=== PATIENT | male | born 1985 | race Caucasian/White ===

== ENCOUNTER 2019-08-20 15:45 | Emergency (ER) | payer MEDICARE ==
[~2019-08-20] VITALS: Ht 175.3 cm; Wt 68.0 kg
[2019-08-20] MEDS ORDERED: ABILIFY10 MG ORAL (15:48)
[2019-08-20] MEDS ORDERED: VENLAFAXINE HCL25 MG ORAL (15:48)
[2019-08-20] MEDS ORDERED: TRAZODONE HCL150 MG ORAL (15:48)
--- NOTE | 2019-08-20 15:50 | NUR ---
ED Nurse Note: Pt brought intio ED by ED stating that he has had severe paranoia today. He states he felt that people in residence were all trying to hurt him, but now realizes that's not true. Pt has hx of major depression and bipolar. Pt is alert and orientedx4, ambulatory. Pt is anxious, keeps playing with hair, restless. Pt denies SI or HI. He is laying in bed.
[2019-08-20 15:53] VITALS: BP 144/71
[2019-08-20] MEDS ORDERED: DiphenhydrAMINE 50mg/ml Inj IM ONE (16:00)
[2019-08-20] MEDS ORDERED: DiphenhydrAMINE 50mg/ml Inj ONE (16:16)
[2019-08-20 16:26] LABS: BASOPHILS % (AUTO) 2.1 % (0.0-2.0); EOSINOPHILS % (AUTO) 1.6 % (0.0-3.0); HEMATOCRIT 46.1 % (42.0-52.0); HEMOGLOBIN 15.3 G/DL (14.2-18.0); LYMPHOCYTES % (AUTO) 29.7 % (20.0-45.0); MEAN CORPUSCULAR VOLUME 89 FL (80-99); MONOCYTES % (AUTO) 10.4 % (1.0-10.0); NEUTROPHILS % (AUTO) 56.2 % (45.0-75.0); PLATELET COUNT 270 K/UL (150-450); RED BLOOD COUNT 5.19 M/UL (4.70-6.10); RED CELL DISTRIBUTION WIDTH 14.3 % (11.6-14.8); WHITE BLOOD COUNT 7.7 K/UL (4.8-10.8)
[2019-08-20 16:30] LABS: APPEARANCE,URINE CLEAR; BILIRUBIN, URINE NEGATIVE (NEGATIVE); COLOR,URINE PALE YELLOW; GLUCOSE, URINE (UA) NEGATIVE (NEGATIVE); KETONES,URINE 2+ (NEGATIVE); LEUKOCYTE ESTERASE ,URINE 2+ (NEGATIVE); NITRITE,URINE NEGATIVE (NEGATIVE); PH,URINE 6 (4.5-8.0); PROTEIN,URINE NEGATIVE (NEGATIVE); UROBILINOGEN,URINE NORMAL MG/DL (0.0-1.0)
[2019-08-20 16:35] LABS: ANION GAP 20 mmol/L (5-15); BLOOD UREA NITROGEN 14 mg/dL (7-18); CALCIUM 9.8 MG/DL (8.5-10.1); CARBON DIOXIDE 21 MMOL/L (21-32); CHLORIDE 102 MMOL/L (98-107); POTASSIUM 3.8 MMOL/L (3.5-5.1); SODIUM 143 MMOL/L (136-145)
[2019-08-20 16:45] LABS: ALANINE AMINOTRANSFERASE 20 U/L (12-78); ALBUMIN 4.5 G/DL (3.4-5.0); ALBUMIN/GLOBULIN RATIO 1.1 (1.0-2.7); ALKALINE PHOSPHATASE 107 U/L (46-116); ASPARTATE AMINO TRANSFERASE 18 U/L (15-37); BILIRUBIN,TOTAL 1.3 MG/DL (0.2-1.0)
[2019-08-20 16:51] LABS: BILIRUBIN,DIRECT 0.2 MG/DL (0.0-0.3)
--- NOTE | 2019-08-20 17:08 | Emergency Room Report ---
History of Present Illness General Chief Complaint: Behavioral Complaint Source: Patient Present Illness HPI 34-year-old male with history of coming from boarding care reports that being on Prozac and Abilify and taking his medication every day here brought in by paramedics complaining of increased paranoia. Patient denies any suicidal or homicidal ideation. Patient appears to be under the influence of methamphetamine as he is very shaky. Patient reports that he might have used methamphetamine. Denies all other drug use, chest pain, headache and dizziness. Is in no distress. Allergies: Coded Allergies: GABAPENTIN (Verified Allergy, Unknown, 08/20/19) HALOPERIDOL (Verified Allergy, Unknown, 08/20/19) Patient History Past Medical History: see triage record Past Surgical History: unable to obtain Pertinent Family History: none Social History: Reports: drug use - Methamphetamine Immunizations: UTD Reviewed Nursing Documentation: PMH: Agreed; PSxH: Agreed Nursing Documentation-PMH Past Medical History: No History, Except For Hx Cardiac Problems: No - Agoraphobia Review of Systems All Other Systems: negative except mentioned in HPI Physical Exam Vital Signs Date Time Temp Pulse Resp B/P (MAP) Pulse Ox O2 Delivery O2 Flow Rate FiO2 08/20/19 15:40 98.4 86 19 142/73 (96) 98 Room Air Sp02 EP Interpretation: reviewed, normal General Appearance: no apparent distress, alert, GCS 15, non-toxic Head: normocephalic, atraumatic Eyes: bilateral eye normal inspection, bilateral eye PERRL ENT: normal ENT inspection, hearing grossly normal, EOM grossly intact Neck: full range of motion, supple/symm/no masses Respiratory: chest non-tender, lungs clear, normal breath sounds, no rhonchi, no wheezing, speaking full sentences Cardiovascular #1: regular rate, rhythm, no edema, no murmur Cardiovascular #2: 2+ radial (R), 2+ radial (L) Gastrointestinal: normal bowel sounds, non tender, soft, non-distended, no guarding, no rebound Rectal: deferred Musculoskeletal: back normal Neurologic: alert, oriented Psychiatric: judgement/insight normal, anxious Skin: no rash Lymphatic: no adenopathy Medical Decision Making PA Attestation All my diagnosis and treatment plans were reviewed ad discussed with my supervising physician Dr. Haile Diagnostic Impression: Primary Impression: Methamphetamine abuse Additional Impression: UTI (urinary tract infection) ER Course 34-year-old male with history of [facility] reports that being on Prozac and Abilify and taking his medication every day here brought in by paramedics complaining of increased paranoia. Patient denies any suicidal or homicidal ideation. Patient appears to be under the influence of methamphetamine as he is very shaky. Patient reports that he might have used methamphetamine. Denies all other drug use, chest pain, headache and dizziness. Is in no distress. Ddx considered but are not limited to: generalized anxiety disorder, panic attack, depression with psychotic feature, bipolar disorder, drug overdose Vital signs: are WNL, pt. is afebrile H&PE are most consistent with: Methamphetamine abuse, incidental finding of UTI ORDERS: Toxin, UA, CBC, CMP, Keflex ED INTERVENTIONS: NS bolus, Rocephin, Benadryl DISCHARGE: At this time pt. is stable for d/c to home. Will provide printed patient care instructions, and any necessary prescriptions. Care plan and follow up instructions have been discussed with the patient prior to discharge. Avoid using methamphetamine as it will induce more paranoia, take medication as directed, follow-up with primary care provider, if worsening symptoms return to emergency room. Patient feels much better after Benadryl was given, patient slept, IV fluids were administered, patient ate on discharge, and fully alert. Last Vital Signs Date Time Temp Pulse Resp B/P (MAP) Pulse Ox O2 Delivery O2 Flow Rate FiO2 08/20/19 15:53 98.4 21 144/71 97 Room Air 08/20/19 15:53 89 Disposition: HOME, SELF-CARE Condition: Stable Scripts Cephalexin* (KEFLEX*) 500 Mg Capsule 500 MG ORAL EVERY 6 HOURS for 7 Days, #28 CAP Prov: Jadon Queen 08/20/19 Patient Instructions: Self-Destructive Behavior, Stimulant Use Disorder- Methamphetamines, Urinary Tract Infection, [id number] Additional Instructions: Avoid using methamphetamine as it will induce paranoia, take your medication as directed, increase oral hydration, if worsening symptoms return to the emergency room Jadon Queen Aug 20, 2019 17:08
[2019-08-20] MEDS ORDERED: CEPHALEXIN500 MG ORAL (17:09)
[2019-08-20 18:00] VITALS: BP 134/70
[2019-08-20 20:20] VITALS: BP 126/72
--- NOTE | 2019-08-20 20:20 | NUR ---
ER DISCHARGE NOTE: Patient is cleared to be discharged per ERMD, pt is aox4, on room air, with stable vital signs. pt was given dc and prescription instructions, pt was able to verbalize understanding, pt id band and iv site removed without complications. pt is able to ambulate with steady gait. pt took all belongings. Addendum: 08/21/19 at 0122 by KIMBERLY ER DISCHARGE NOTE: Patient is cleared to be discharged per ERMD, pt is aox4, on room air, with stable vital signs. pt was given dc and prescription instructions, pt was able to verbalize understanding, pt id band and iv site removed without complications. pt is to be discharged back to facility and is accompanied by amulance personnel.
== END 2019-08-20 20:20 | disposition home or self-care (01) ==
LOC: EDBD 15:45 → EMR 17:10
DX: F15.10 Other stimulant abuse, uncomplicated (principal); N39.0 Urinary tract infection, site not specified; Z88.8 Allergy status to other drugs, medicaments and biological substances
CPT/HCPCS: 36415; 80053; 80307; 81003; 82248; 85025; 87086; 96360; 96372; 99284; G0480; J1200; J7030

== ENCOUNTER 2019-08-23 12:46 | Emergency (ER) | payer MEDICARE ==
[~2019-08-23] VITALS: Ht 177.8 cm; Wt 63.5 kg
[~2019-08-23 12:46] MED LIST: ABILIFY10 MG ORAL; CEPHALEXIN500 MG ORAL; TRAZODONE HCL150 MG ORAL; VENLAFAXINE HCL25 MG ORAL
--- NOTE | 2019-08-23 13:24 | NUR ---
ED Nurse Note: Pt belongings sent to locker #2.
[2019-08-23 13:30] VITALS: BP 118/72
--- NOTE | 2019-08-23 13:30 | NUR ---
ED Nurse Note: Pt walked into ED from longterm house w/ suicidal ideation. Pt states he wants to be placed in inpatient psych facility. Pt states he has a plan to overdose on heroin. Safety measure in place. Pts belongings placed in locker. RASHEEDA Steinberg is aware of SI and plan. Sitter lgo filled out. Pt i august piña.
[2019-08-23 14:12] LABS: BASOPHILS % (AUTO) 1.9 % (0.0-2.0); HEMATOCRIT 46.4 % (42.0-52.0); HEMOGLOBIN 16.1 G/DL (14.2-18.0); LYMPHOCYTES % (AUTO) 22.5 % (20.0-45.0); MEAN CORPUSCULAR VOLUME 88 FL (80-99); MONOCYTES % (AUTO) 7.6 % (1.0-10.0); PLATELET COUNT 253 K/UL (150-450); RED BLOOD COUNT 5.25 M/UL (4.70-6.10); RED CELL DISTRIBUTION WIDTH 12.6 % (11.6-14.8); WHITE BLOOD COUNT 6.9 K/UL (4.8-10.8)
--- NOTE | 2019-08-23 14:30 | NUR ---
ED Nurse Note: Pt lying in bed, awake and quiet. Safety measures in place.
[2019-08-23 14:33] LABS: ANION GAP 11 mmol/L (5-15); BLOOD UREA NITROGEN 14 mg/dL (7-18); CALCIUM 9.6 MG/DL (8.5-10.1); CARBON DIOXIDE 27 MMOL/L (21-32); CHLORIDE 105 MMOL/L (98-107); CREATININE 0.8 MG/DL (0.55-1.30); POTASSIUM 4.1 MMOL/L (3.5-5.1); SODIUM 143 MMOL/L (136-145)
[2019-08-23 14:41] LABS: ALANINE AMINOTRANSFERASE 18 U/L (12-78); ALBUMIN 4.4 G/DL (3.4-5.0); ALKALINE PHOSPHATASE 103 U/L (46-116); ASPARTATE AMINO TRANSFERASE 19 U/L (15-37); BILIRUBIN,TOTAL 0.5 MG/DL (0.2-1.0)
--- NOTE | 2019-08-23 15:10 | Emergency Room Report ---
History of Present Illness General Chief Complaint: Behavioral Complaint Source: Patient (Isabel Steinberg) Present Illness HPI 34-year-old male presents to the emergency department complaining of suicidal ideations and significant exacerbation of his depression and anxiety symptoms. Patient reports he has a history of degenerative depressive disorder, anxiety, [place] phobia and ADHD. Patient denies alcohol use he reports he has history of drug use and states he last used some meth 4 days ago. Patient reports that he has a plan to overdose on heroin and describes how he feels that that would be the most painless way to . Patient reports previous psychiatric hospitalizations twice in the past and at [facility] and at a psychiatric hospital in [place]. He reports 1 PSA. He denies manic symptoms. Patient denies fevers, chills, shortness of breath or chest pain. He does report history of heart attack 9 years ago and states that he had CHF and was on Coreg for approximately 6 months before he was taken off of it. Patient denies any other significant past medical history. He reports having a poor support system as an outpatient. He is currently residing at [facility]. He left today because they did not give him his medications. Pt. reports that he takes 40 mg Prozac, 1 mg of Klonopin, 150 mg trazodone, plus or minus Benadryl, 15 mg Abilify. He denies pain at this time. He denies HI. (Isabel Steinberg) Allergies: Coded Allergies: GABAPENTIN (Verified Allergy, Unknown, 08/20/19) HALOPERIDOL (Verified Allergy, Unknown, 08/20/19) Patient History Past Medical History: see triage record Past Surgical History: none Pertinent Family History: none Reviewed Nursing Documentation: PMH: Agreed; PSxH: Agreed (Isabel Steinberg) Nursing Documentation-PMH Hx Cardiac Problems: No - Agoraphobia, adhd (Isabel Steinberg) Review of Systems All Other Systems: negative except mentioned in HPI (Isabel Steinberg) Physical Exam Vital Signs Date Time Temp Pulse Resp B/P (MAP) Pulse Ox O2 Delivery O2 Flow Rate FiO2 08/23/19 12:59 97.3 96 19 120/75 (90) 95 Room Air 08/23/19 13:30 97 Sp02 EP Interpretation: reviewed, normal General Appearance: no apparent distress, alert, GCS 15, non-toxic, other - Mildly disheveled Head: normocephalic, atraumatic Eyes: bilateral eye normal inspection, bilateral eye PERRL ENT: hearing grossly normal, normal voice Neck: full range of motion Respiratory: chest non-tender, lungs clear, normal breath sounds, speaking full sentences Cardiovascular #1: regular rate, rhythm Gastrointestinal: normal bowel sounds, non tender, soft Rectal: deferred Genitourinary: normal inspection Musculoskeletal: back normal, normal range of motion, gait/station normal, non- tender Neurologic: alert, motor strength/tone normal, oriented x3, sensory intact, responsive, speech normal Psychiatric: judgement/insight normal, memory normal, depressed affect, other - Pt. is SI. he is restless but cooperative. Suicide Risk Assessment: Suicidal Ideation: Yes Had intent to initiate attempt: Yes Pt's plan for suicide attempt: Yes - OD on Heroin Has means to complete attempt: Yes Skin: normal color, normal inspection Lymphatic: no adenopathy (Isabel Steinberg) Medical Decision Making PA Attestation Dr. Roman is my supervising Physician whom patient management has been discussed with. (Isabel Steinberg) Diagnostic Impression: Primary Impression: Behavioral disorder Additional Impression: Methamphetamine abuse ER Course 34-year-old male presents to the emergency department complaining of suicidal ideations and significant exacerbation of his depression and anxiety symptoms. Patient reports he has a history of degenerative depressive disorder, anxiety, [place] phobia and ADHD. Patient denies alcohol use he reports he has history of drug use and states he last used some meth 4 days ago. Patient reports that he has a plan to overdose on heroin and describes how he feels that that would be the most painless way to . Patient reports previous psychiatric hospitalizations twice in the past and at [facility] and at a psychiatric hospital in [place]. He reports 1 PSA. He denies manic symptoms. Patient denies fevers, chills, shortness of breath or chest pain. He does report history of heart attack 9 years ago and states that he had CHF and was on Coreg for approximately 6 months before he was taken off of it. Patient denies any other significant past medical history. He reports having a poor support system as an outpatient. He is currently residing at [facility]. He left today because they did not give him his medications. Pt. reports that he takes 40 mg Prozac, 1 mg of Klonopin, 150 mg trazodone, plus or minus Benadryl, 15 mg Abilify. He denies pain at this time. He denies HI. Pt is very cooperative however restless affect. Ddx considered but are not limited to OD, SI/HI, psychosis, UTI, intoxication Vital signs: are WNL, pt. is afebrile H&PE are most consistent with behavioral/mental health issue ORDERS: -CBC, CMP: WNL -UA: negative for infection see results attached. -UDS: Positive for Amphetamine -Salicylates and Acetaminophen - no acute intoxication. ED INTERVENTIONS: - None required at this time. DISPOSITION: Patient is medically cleared and is stable for psychiatric placement. Labs Test 08/23/19 13:39 08/23/19 14:00 White Blood Count 6.9 K/UL (4.8-10.8) Red Blood Count 5.25 M/UL (4.70-6.10) Hemoglobin 16.1 G/DL (14.2-18.0) Hematocrit 46.4 % (42.0-52.0) Mean Corpuscular Volume 88 FL (80-99) Mean Corpuscular Hemoglobin 30.7 PG (27.0-31.0) Mean Corpuscular Hemoglobin Concent 34.7 G/DL (32.0-36.0) Red Cell Distribution Width 12.6 % (11.6-14.8) Platelet Count 253 K/UL (150-450) Mean Platelet Volume 7.2 FL (6.5-10.1) Neutrophils (%) (Auto) 66.0 % (45.0-75.0) Lymphocytes (%) (Auto) 22.5 % (20.0-45.0) Monocytes (%) (Auto) 7.6 % (1.0-10.0) Eosinophils (%) (Auto) 2.0 % (0.0-3.0) Basophils (%) (Auto) 1.9 % (0.0-2.0) Sodium Level 143 MMOL/L (136-145) Potassium Level 4.1 MMOL/L (3.5-5.1) Chloride Level 105 MMOL/L (98-107) Carbon Dioxide Level 27 MMOL/L (21-32) Anion Gap 11 mmol/L (5-15) Blood Urea Nitrogen 14 mg/dL (7-18) Creatinine 0.8 MG/DL (0.55-1.30) Estimat Glomerular Filtration Rate > 60 mL/min (>60) Glucose Level 96 MG/DL (74-106) Calcium Level 9.6 MG/DL (8.5-10.1) Total Bilirubin 0.5 MG/DL (0.2-1.0) Aspartate Amino Transf (AST/SGOT) 19 U/L (15-37) Alanine Aminotransferase (ALT/SGPT) 18 U/L (12-78) Alkaline Phosphatase 103 U/L (46-116) Total Protein 8.6 G/DL (6.4-8.2) Albumin 4.4 G/DL (3.4-5.0) Globulin 4.2 g/dL Albumin/Globulin Ratio 1.0 (1.0-2.7) Salicylates Level 1.8 ug/mL (2.8-20) Acetaminophen Level < 2 MCG/ML (10-30) Serum Alcohol < 3 mg/dL Urine Opiates Screen Negative (NEGATIVE) Urine Barbiturates Screen Negative (NEGATIVE) Phencyclidine (PCP) Screen Negative (NEGATIVE) Urine Amphetamines Screen Positive (NEGATIVE) Urine Benzodiazepines Screen Negative (NEGATIVE) Urine Cocaine Screen Negative (NEGATIVE) Urine Marijuana (THC) Screen Negative (NEGATIVE) (Isabel Steinberg) ER Course Patient signed out to me. Patient presents with chief complaint of feeling suicidal. Later on he told me that he wants a place to stay. He slept through the night. He is positive for methamphetamine. Now is eating and drinking without any problem. He said he is not feeling suicidal anymore. Will discharge home. This patient is a chronic risk of self injury due to poor impulse control, limited coping skills, and judgment intermittently impaired by intoxication. I believe that the available clinical evidence to suggest that these characteristics derived primarily from personality disorder and are likely very stable over time. Hospitalization would likely attenuate risk of self-harm only during senior care period, without lasting risk reduction. Serious self-harm , while possible, would likely be inadvertent, and because of impulsivity, and foreseeable. For these reasons, I do not believe hospitalization would provide meaningful reduction in risk of self-harm. (Daniel Hayward MD) Last Vital Signs Date Time Temp Pulse Resp B/P (MAP) Pulse Ox O2 Delivery O2 Flow Rate FiO2 08/23/19 13:30 92 16 Room Air 97 08/23/19 13:30 97.3 118/72 95 (Isabel Steinberg) Status: improved (Daniel Hayward MD) Disposition: HOME, SELF-CARE Condition: Stable Signed Out To: Dr. Hayward (Isabel Steinberg) Referrals: NOT CHOSEN IPA/,REFERRING (PCP) Patient Instructions: Self-Destructive Behavior Additional Instructions: Abstain from drugs and alcohol. Follow-up with mental health within a week. Return if worse. Isabel Steinberg Aug 23, 2019 15:10 Daniel Hayward MD Aug 24, 2019 06:22
--- NOTE | 2019-08-23 15:44 | NUR ---
ED Nurse Note: Pt is awake and alertx4, no hallucinations. safety measures are in place.
[2019-08-23 16:15] VITALS: BP 125/70
--- NOTE | 2019-08-23 16:33 | NUR ---
ED Nurse Note: Pt is in room, lying in bed eating. safety precautions in place.
[2019-08-23 19:10] VITALS: BP 122/71
--- NOTE | 2019-08-23 19:26 | NUR ---
Nurse Note: Pt resting in bed, VSS, no s/s of distress noted.
--- NOTE | 2019-08-23 21:20 | NUR ---
ED Nurse Note: pt was transferred from Ortho room to [place] 2 per ERMD; transferred by water proofer
--- NOTE | 2019-08-23 21:40 | NUR ---
ED Nurse Note: Pt resting in bed; safety precautions in place. no s/s of distress noted.
[2019-08-23 22:42] VITALS: BP 120/72
--- NOTE | 2019-08-23 23:40 | NUR ---
ED Nurse Note: Pt resting in bed; safety precautions in place. no s/s of distress noted.
[2019-08-24 00:20] VITALS: BP 120/73
--- NOTE | 2019-08-24 01:20 | NUR ---
ED Nurse Note: Pt sleeping in bed, VSS no s/s of distress noted. Safety precautions in place.
[2019-08-24 03:49] VITALS: BP 118/68
--- NOTE | 2019-08-24 03:51 | NUR ---
ED Nurse Note: Pt sleeping in bed, VSS no s/s of distress noted. Safety precautions in place.
[2019-08-24 05:26] VITALS: BP 117/69
--- NOTE | 2019-08-24 05:26 | NUR ---
ED Nurse Note: Pt sleeping in bed, VSS no s/s of distress noted. Safety Precautions in place.
--- NOTE | 2019-08-24 06:15 | NUR ---
ED Nurse Note: ERMD at bedside. ERMD informed pt that he is to be discharged d/t change in plan of care. ERMD DC need/requirement for sitter. Sitters log filed. Pt belongings returned to pt.
[2019-08-24 06:35] VITALS: BP 117/69
--- NOTE | 2019-08-24 06:35 | NUR ---
ER DISCHARGE NOTE: Patient is cleared to be discharged home per ERMD, pt is aox4, on room air, with stable vital signs. pt was given dc instructions, pt was able to verbalize understanding, pt id band and iv site removed without complications. pt is able to ambulate with steady gait. pt took all belongings.
== END 2019-08-24 06:35 | disposition home or self-care (01) ==
LOC: EMR 13:20
DX: F23 Brief psychotic disorder (principal); F15.10 Other stimulant abuse, uncomplicated; R45.851 Suicidal ideations; I25.2 Old myocardial infarction; Z88.8 Allergy status to other drugs, medicaments and biological substances; F41.9 Anxiety disorder, unspecified
CPT/HCPCS: 36415; 80053; 80307; 85025; 99285; G0480